=== PATIENT | female | born 1960 | race Caucasian/White ===

== ENCOUNTER → 2020-06-28 12:40 | Outpatient (CLI) | payer MEDICARE, SELFPAY ==
[2020-06-28 15:52] LABS: Alanine Aminotransferase 31 U/L (12-78); Albumin Level 3.9 g/dl (3.5-5.0); Alkaline Phosphatase 120 U/L (38-126); Amylase 39 U/L (30-110); Aspartate Amino Transferase 43 U/L (14-36); Bilirubin,Direct 0.1 mg/dl (0.0-0.4); Bilirubin,Indirect 0.4 mg/dL (0.0-0.9); Bilirubin,Total 0.5 mg/dl (0.2-1.3); Bilirubin,Unconjugated 0.4 mg/dL (0.0-1.1); Lipase 93 U/L (23-300); Total Protein,Serum 6.9 g/dl (6.3-8.2)
[2020-06-28 19:28] LABS: Basophils % 0.5 % (0.1-2.0); Eosinophils # 0.2 K/mm3 (0.0-0.4); Eosinophils % 3.1 % (0.1-12.0); Hematocrit 41.4 % (37.0-47.0); Hemoglobin 13.2 g/dL (12.2-16.2); Lymphocytes # 2.2 K/mm3 (0.7-4.5); Lymphocytes % 31.5 % (10-50); Mean Corpuscular HGB Conc 31.9 g/dL (31.8-35.4); Mean Corpuscular Hemoglobin 27.4 pg (27.0-31.2); Mean Corpuscular Volume 85.7 fl (81-99); Monocytes # 0.3 K/mm3 (0.1-1.0); Monocytes % 4.9 % (1.7-9.3); Neutrophils # 4.2 K/mm3 (1.8-7.8); Neutrophils % 59.9 % (37.0-80.0); Platelet Count 201 K/mm3 (142-424); Red Blood Count 4.83 M/mm3 (4.20-5.40); Red Cell Distribution Width 14.5 % (11.5-17.5)
[2020-06-28 19:36] LABS: Alanine Aminotransferase 32 U/L (12-78); Albumin/Globulin Ratio 1.4 (1.1-1.8); Alkaline Phosphatase 124 U/L (38-126); Aspartate Amino Transferase 44 U/L (14-36); Bilirubin,Total 0.5 mg/dl (0.2-1.3); Blood Urea Nitrogen 15 mg/dl (7-17); Calcium 9.1 mg/dl (8.4-10.2); Carbon Dioxide 30 mmol/L (22.0-30.0); Chloride 102 mmol/L (98-107); Chol/HDL Ratio 2.7 (1-3.5); Cholesterol 146 mg/dl (140-200); Estimated Glomerular Filt Rate 73 ml/min (>60); GFR (African American) 89 ML/MIN (>60); Globulin 2.9 g/dL (1.3-3.2); Glucose 206 mg/dl (74-100); HDL Cholesterol 54 mg/dl (40-60); Sodium 139 mmol/L (136-145); Total Protein,Serum 6.9 g/dl (6.3-8.2); Triglycerides 247 mg/dl (30-150); VLDL Cholesterol 49 mg/dL (0-40)
[2020-06-28 19:46] LABS: Hemoglobin A1C 10.8 % (4.0-6.0)
[2020-06-28 19:47] LABS: Direct LDL Cholesterol 57.91 mg/dL (100-129)
== END ==
PROVIDERS: Family Medicine; Visit Provider Internal Medicine Cardiovascular Disease
DX: E11.9 Type 2 diabetes mellitus without complications (principal); E78.5 Hyperlipidemia, unspecified; I10 Essential (primary) hypertension; R06.00 Dyspnea, unspecified; R07.9 Chest pain, unspecified; Z82.49 Family history of ischemic heart disease and other diseases of the circulatory system; R07.89 Other chest pain; R94.31 Abnormal electrocardiogram [ECG] [EKG]; Z79.84 Long term (current) use of oral hypoglycemic drugs
CPT/HCPCS: 36415; 80053; 80061; 80076; 82150; 83036; 83690; 85025

== ENCOUNTER → 2020-07-05 07:11 | Outpatient (CLI) | payer SELFPAY ==
--- NOTE | 2020-07-05 07:27 | CT_ITS ---
PROCEDURE: CT HEART W CALCIUM SCORE CLINICAL HISTORY: HEART SCREENING COMPARISON: No exams were available for comparison TECHNIQUE: Axial images obtained with sagittal and coronal reformats. All CT scans at the facility use one or more dose reduction, viz: automated exposure control, ma/kV adjustment per patient size (including targeted exams where dose is matched to indication, i.e. head), or iterative reconstruction technique. FINDINGS: No identifiable calcific atherosclerotic plaque with very low cardiovascular disease risk. Coronary artery calcium score is 0. IMPRESSION: No identifiable calcific atherosclerotic plaque with very low cardiovascular disease risk Dictated by: Emanuel Schmidt MD 07/05/2020 15:35 Emanuel Schmidt MD in [facility] 07/05/2020 15:35
== END ==
PROVIDERS: PCP Family Medicine; Visit Provider Internal Medicine Cardiovascular Disease
DX: Z13.6 Encounter for screening for cardiovascular disorders (principal)
CPT/HCPCS: 75571

== ENCOUNTER → 2020-07-05 07:20 | Outpatient (CLI) | payer MEDICARE, SELFPAY ==
--- NOTE | 2020-07-05 | CA_ITS ---
APPROVED REPORT Exam: Pharmacologic Technologist: Mandy Martinez, Ht: 5 ft 3 in Wt: 226 lbs BSA: 2.04 m2 HR: 77 bpm BP: 125/64 mmHg Rhythm: NSR,PRWP ANTERIORLY Medical History Medical History: HTN, Hyperlipidemia, Diabetic ??? Noninsulin Medications: Asa,,,,, Metformin,,,,, Atorvastatin,,,,, Lisinopril/HCTZ,,,,, Carvedilol,,,,, Sertraline,,,,, Allergies: No known drug allergies Cardiac Risk Factors: HTN, Hyperlipidemia, Diabetes (non-insulin), FHX of CAD Stress Test Details Test: LEXISCAN HR Resting HR: 84 bpm Max Heart Rate (APMHR): 161 bpm Max HR Achieved: 109 bpm Target HR (85% APMHR): 136 bpm % of APMHR: 67 Recovery HR: 94 bpm BP Resting BP: 125.0/64.0 mmHg Max BP: 142.0/66.0 mmHg Recovery BP: 129.0/59.0 mmHg ECG Resting ECG: NSR,PRWP ANTERIORLY Clinical Reason for Termination: Completed Protocol Exercise duration: 04:23 min Highest Stage Achieved: Stress ECG Conclusion DURING INFUSION PATIENT HAD NO SYMPTOMS. NO ARRHYTHMIAS/ECTOPY. NO ST-T CHANGES. NON-DIAGNOSTIC LEXISCAN STRESS. Test Summary REST . . . . . . . Sitting REST 11:42 . . 84 . 125/ 64 . . Stage 1 . . . . . . . Myoview Injected Stage 1 01:00 . . 102 . . . . Stage 2 01:00 . . 109 . 124/ 64 . . Stage 3 01:00 . . 101 . . . . Stage 4 01:00 . . 96 . 142/ 66 . . Stage 4 01:23 . . 95 . 142/ 66 . Stop exercise at 04:23 RECOVERY 01:00 . . 96 . 129/ 59 . . RECOVERY 02:00 . . 91 . 129/ 59 . . RECOVERY 03:00 . . 89 . 129/ 59 . . RECOVERY 04:00 . . 87 . 126/ 59 . . RECOVERY 05:00 . . 87 . 126/ 59 . . RECOVERY 05:16 . . 88 . 116/ 55 . . Electronically signed by : Henok Howard, 07/05/2020 13:02:29
--- NOTE | 2020-07-05 07:21 | NM_ITS ---
APPROVED REPORT Exam: Nuclear Stress Test Indication: H/O PA, OBESITY, HTN, HYPERLIPIDEMIA, FM HX, C.P., SOB, PALPITATIONS, FATIGUE Patient Location: Outpatient Stress Tech: Gloria Francisconkson NM Tech:Betty Obrien, ARRT RT (R)(N)(M) Ht: 5 ft 3 in Wt: 224 lbs Bra Size: C HR: 7 bpm BP: 125/64 mmHg BSA: 2.03 m2 BMI: 39.6 History: H/O PA, OBESITY, HTN, HYPERLIPIDEMIA, FM HX, C.P., SOB, PALPITATIONS, FATIGUE Procedure: Patient received a 0.4 mg of intravenous Lexiscan, resting heart rate 77 bpm, resting blood pressure 125/64 mmHg, with Lexiscan maximum heart rate achived was 109 bpm which is Less than 85 % of the maximum predicted heart rate and blood pressure was 142/66 mmHg. With Lexiscan, patient denied any complaint of chest pain. Electrocardiogram Resting electrocardiogram showed sinus rhythm, with Lexiscan there is less than 1.[address] segment depression noted from the baseline EKG. The EKG portion of the Lexiscan Myoview is nondiagnostic. Cardiac Stress and Resting SPECT Images: Cardiac Stress and Resting SPECT images were obtained using technetium 99m Myoview 31.7 mCi stress and 10.50 mCi at rest. Gated SPECT for the analysis of segmental wall motion and calculation of the ejection fraction also done. Cardiac stress and resting SPECT images show uniform myocardial activity without segmental perfusion abnormality, computer derived ejection fraction is over 65% with no regional wall motion abnormality, right ventricle is mildly enlarged with normal contractility. Conclusion: 1. The EKG portion of the Lexiscan Myoview is nondiagnostic. 2. No scintigraphic evidence of reversible ischemia seen, computer derived ejection fraction is over 65% with no regional wall motion abnormality, right ventricle is mildly enlarged with normal contractility. 3. Normal Lexiscan Myoview study except right ventricle is mildly enlarged with normal contractility. Electronically signed by : Henok Howard, 07/05/2020 13:06:13
--- NOTE | 2020-07-05 07:36 | CA_ITS ---
APPROVED REPORT Security Associate: Yesenia Mendoza RVT Laterality: Bilateral Study Quality: Good Indications: Dizziness and Vertigo Risk Factors Hypertension: Hyperlipidemia Diabetes Doppler Spectral Velocity Analysis ECA (R) 67.40/9.60 cm/s ECA (L) 72.60/14.10 cm/s dICA (R) 104.80/32.10 cm/s dICA (L) 101.60/31.00 cm/s Jasmyne (R) 58.80/22.50 cm/s Jasmyne (L) 87.70/31.00 cm/s pICA (R) 63.80/20.60 cm/s pICA (L) 51.30/13.90 cm/s dCCA (R) 56.70/16.00 cm/s dCCA (L) 63.10/15.00 cm/s pCCA (R) 78.10/16.00 cm/s pCCA (L) 89.80/20.30 cm/s Vert (R) 51.30/16.00 cm/s Vert (L) 37.70/9.40 cm/s ICA/CCA 1.85 ICA/CCA 1.61 Findings Study suggests no evidence of stenosis of the right internal cartoid artery. Study suggests no evidence of stenosis of the left internal cartoid artery. Antegrade flow seen bilateral vertebral arteries. Conclusion Study suggests no evidence of stenosis of the right internal cartoid artery. Study suggests no evidence of stenosis of the left internal cartoid artery. Antegrade flow seen bilateral vertebral arteries. Electronically signed by : Emanuel Schmidt MD 07/05/2020 17:21:42
--- NOTE | 2020-07-05 07:36 | CA_ITS ---
APPROVED REPORT EXAM: Comprehensive 2D, Doppler, and color-flow Echocardiogram Receptionist Doctor'S Office: Yesenia Mendoza RVT Ht: 5 ft 3 in Wt: 226lbs BSA: 2.04 BP: 141/61 mmHg Indications: CP,DIZZINESS,DM,SOA,HTN,HLD,ABN EKG 2D Dimensions LVOT 1.81 cm (M/F) 1.5-2.5 M-Mode Dimensions RVDd 2.78 cm (0.9-2.6) LA Diam 3.73 cm (1.9-4.0) LVDd 3.32 cm (3.5-5.7) Ao Diam 2.91 cm (2.0-3.7) LVDs 2.25 cm (3.5-5.7) IVSd 0.86 cm (0.6-1.1) PWd 1.28 cm (0.6-1.1) EF (Teich) 61.80% FS 32.20% EDV (Teich) 44.80 mL ESV (Teich) 17.10 mL LV Diastology E Decel Time 230.00 (160-240 msec) E/A Ratio 0.7 MED E' 4.60 (< 7 cm/sec) E'/MED E' Ratio 12.67 (>14) LAT E' 14.20 (<10 cm/sec) E/LAT E' Ratio 4.11 (>14) Mitral Valve MV E Max Miguel. 58.00 (40-130 cm/s) MV A Velocity 85.00 (40-130 cm/s) E/A Ratio 0.68 MV Decel. Time 230.00 (160-240 ms) MV PHT 67.00 ms Pulmonary Valve PV Peak Velocity 96.00 (50-150 cm/s) Left Ventricle Left atrium is mildly enlarged, left ventricle is normal size, mild concentric left ventricular hypertrophy, visually estimated ejection fraction 55% with no regional wall motion abnormality, grade 1 diastolic dysfunction seen without tissue Doppler evidence of raise left atrial pressure. Right Ventricle Right atrium and right ventricle are normal size and contractility. Aortic Valve Aortic valve is minimally thickened and fibrosed, there is no aortic stenosis or aortic insufficiency. Mitral Valve Mitral valve is grossly normal, there is mild mitral regurgitation. Tricuspid Valve Tricuspid valve is grossly normal, there is mild tricuspid regurgitation, tricuspid regurgitation jet velocity is inadequate for calculation of the right ventricular systolic pressure. Pulmonic Valve Pulmonic valve is poorly visualized. Great Vessels Aortic root is normal size. Pericardium No significant pericardial effusion noted. Conclusion 1. Mildly enlarged left atrium, normal left ventricular size, mild concentric left ventricular hypertrophy, visually estimated ejection fraction 55% with no regional wall motion abnormality, grade 1 diastolic dysfunction seen without tissue Doppler evidence of raise left atrial pressure. 2. Thickened and calcified aortic valve without Doppler evidence of aortic stenosis or aortic insufficiency. 3. Mild mitral and tricuspid regurgitation. 4. No significant pericardial effusion noted. Electronically signed by : Henok Howard, 07/05/2020 13:28:15
== END ==
PROVIDERS: PCP Family Medicine; Visit Provider Internal Medicine Cardiovascular Disease
DX: E11.9 Type 2 diabetes mellitus without complications (principal); E78.5 Hyperlipidemia, unspecified; I10 Essential (primary) hypertension; R06.00 Dyspnea, unspecified; R07.9 Chest pain, unspecified; Z82.49 Family history of ischemic heart disease and other diseases of the circulatory system; R42 Dizziness and giddiness; R94.31 Abnormal electrocardiogram [ECG] [EKG]; Z79.84 Long term (current) use of oral hypoglycemic drugs
CPT/HCPCS: 78452; 93017; 93306; 93880; A9502; J2785